=== PATIENT | male | born 1970 | race Caucasian/White ===

== ENCOUNTER 2018-12-28 13:45 | Emergency (ER) | payer OTHER, MEDICAID, SELFPAY ==
[2018-12-28 13:57] VITALS: BP 154/104; PULSE 109; RESP 16; TEMP 37; O2SAT 98; BMI 32.5
[2018-12-28] MEDS: PROPARACAINE 0.5% OPHTH SOL 1 DROPS EYE-BOTH (15:28)
--- NOTE | 2018-12-28 15:29 | PC.NURSE ---
eye drops administered by dr choi
--- NOTE | 2018-12-28 15:35 | ED.EYEPROB ---
HPI - Eye Problem <SHERLYN Patrick - Last Filed: 12/28/18 22:02> General Chief complaint: Eye Problems Stated complaint: left eye irritation antibiotic drops x3 days Time Seen by Provider: 12/28/18 15:06 Source: patient Mode of arrival: ambulatory Limitations: no limitations History of Present Illness HPI Narrative: 48-year-old male with history of asthma and hypertension, presents emergency department today complaining of bilateral eye itching and irritation for the past 3 days with mucoid discharge. He states he was in the walk-in clinic and was given eye drops and his symptoms were slightly relieved but still remain. States he has been rubbing his eyes constantly. Two days ago he also developed sneezing, rhinorrhea, and cough. He states that he felt like the itching irritation was better for a day and then it is urged increased. Patient denies any allergies to antibiotics. Patient denies fevers, sore throat, double vision, vision loss, chest pain, shortness of breath, severe headaches, dizziness, or any feelings of pressure. Related Data Previous Rx's Medication Instructions Recorded epinephrine 0.3 mg/0.3 mL 0.3 mg IM SEE INSTRUCTIONS #1 kit 12/25/18 injection, auto-injector polymyxin B sulfate 10,000 2 drp EYE-BOTH QID 7 Days #10 ml 12/25/18 unit-trimethoprim 1 mg/mL eye drops erythromycin 0.5 inch EYE-BOTH Q4H 7 Days #50 12/28/18 gram Allergies Allergy/AdvReac Type Severity Reaction Status Date / Time venom-honey bee Allergy Unknown Unverified 12/25/18 19:37 [BEE VENOM (HONEY BEE)] morphine [MORPHINE] AdvReac Unknown NAUSEA Unverified 12/25/18 19:37 Review of Systems <SHERLYN Patrick - Last Filed: 12/28/18 22:02> Review of Systems Narrative: REVIEW OF SYSTEMS: GENERAL: Denies fever or chills. HENT: No head trauma, hearing loss, or sore throat. EYES: Complains of bilateral eye irritation and eye discharge, see HPI. NECK/LYMPHATIC: No lymphadenopathy. CARDIOVASCULAR: No chest pain. RESPIRATORY: No cough or shortness of breath. INTEGUMENTARY: No rash, lesions, or pruritus. NEURO: No headaches or confusion. PFSH <SHERLYN Patrick - Last Filed: 12/28/18 22:02> Medical History Current smoker (04/26/17) Elevated blood pressure (05/02/15) Social History Smoking Status: Current some day smoker Social History Smoking Status: Current some day smoker Exam <SHERLYN Patrick - Last Filed: 12/28/18 22:02> Initial Vital Signs Initial Vital Signs: Vital Signs Temperature 98.6 F 12/28/18 13:57 Pulse Rate 109 H 12/28/18 13:57 Respiratory Rate 16 12/28/18 13:57 Blood Pressure 154/104 H 12/28/18 13:57 Pulse Oximetry 98 12/28/18 13:57 PHYSICAL EXAMINATION: GENERAL: Well groomed, alert, and cooperative. Answers questions promptly and appropriately. Vital signs noted. HENT: Normocephalic, atraumatic. Hearing intact. Oral mucosa is pink and moist. Face features symmetrical. EYES: PERRLA, EOMIs with out pain, conjunctiva erythematous, multiple small subconjunctival hemorrhages noted to medial cornea is of red eye and lateral corners of left eye. Sclera with mild injection. Profuse amount of Clear to yellow discharge noted around eyes bilaterally, eyelashes are matted. Fluorescein examination did not reveal any dense areas, abrasions, or foreign objects. No periorbital swelling. Patient tolerated the examination well. RESPIRATORY: Normal respiratory rate, trachea midline, airway patent. No stridor, nasal flaring or accessory muscle use. MUSCULOSKELETAL: Normal gait and coordination. Equal tone and mass bilaterally. SKIN: Warm, dry, soft, appropriate color for ethnicity. NEURO: Alert and Oriented X 3. Good coordination. PSYCH: Appropriate affect and mood. <Lisa Machuca DO - Last Filed: 12/29/18 07:39> Initial Vital Signs Initial Vital Signs: Vital Signs Temperature 98.6 F 12/28/18 13:57 Pulse Rate 109 H 12/28/18 13:57 Respiratory Rate 16 12/28/18 13:57 Blood Pressure 154/104 H 12/28/18 13:57 Pulse Oximetry 98 12/28/18 13:57 Course <Yoli Nguyen [employer] - Last Filed: 12/28/18 22:02> Course Course Narrative: A fluorescein exam was performed to both eyes, no corneal abrasions or foreign objects were identified. Patient tolerated exam well. Orders Ordered: Discontinued Medications Erythromycin (Erythromycin Ophth Oint) 1 applic EYE-BOTH NOW ONE Stop: 12/28/18 15:36 Last Admin: 12/28/18 15:42 Dose: 1 applic Documented by: [facility] Proparacaine HCl (Parcaine 0.5% Ophth Miranda) 1 drops EYE-BOTH NOW ONE Stop: 12/28/18 15:26 Last Admin: 12/28/18 15:28 Dose: 2 drop [facility] Consultation #1: Patient staffed with Dr. Machuca. Vital Signs Vital signs: Vital Signs - 8 hr 12/28/18 13:57 Temperature 98.6 F Pulse Rate 109 H Respiratory Rate 16 Blood Pressure 154/104 H Pulse Oximetry 98 <Lisa Machuca DO - Last Filed: 12/29/18 07:39> Orders Ordered: Discontinued Medications Erythromycin (Erythromycin Ophth Oint) 1 applic EYE-BOTH NOW ONE Stop: 12/28/18 15:36 Last Admin: 12/28/18 15:42 Dose: 1 applic Documented by: [facility] Proparacaine HCl (Parcaine 0.5% Ophth Miranda) 1 drops EYE-BOTH NOW ONE Stop: 12/28/18 15:26 Last Admin: 12/28/18 15:28 Dose: 2 drop Documented by: [facility] Vital Signs Vital signs: Vital Signs - 8 hr 12/28/18 13:57 Temperature 98.6 F Pulse Rate 109 H Respiratory Rate 16 Blood Pressure 154/104 H Pulse Oximetry 98 MDM - Eye Problem <Yoli NguyenSHERLYN - Last Filed: 12/28/18 22:02> Medical Records Attestation: I reviewed the patient's medical records. Lab Data Attestation: I reviewed the patient's lab results. MDM Narrative Medical decision making narrative: I suspect patient's symptoms are most likely caused by bacterial versus viral conjunctivitis. However, the increasing pruritus and irritation since using the eye drops may have been due to an allergy to the polymycin B drops. Additionally, I suspect subconjunctival hemorrhage due to profuse rubbing of his eyes. Very little concern for acute glaucoma as he retains his vision, EOMI without pain, and PERRLA. No concern for abrasion or foreign body as patient's story does not yield any concern for this and the exam supports this history. Strict return precautions were given and follow-up instructions discussed. Discharge Plan Departure Patient Disposition: Home Clinical Impression: Conjunctivitis Qualifiers: Conjunctivitis type: acute Acute conjunctivitis type: bacterial Laterality: bilateral Qualified Code(s): H10.33 - Unspecified acute conjunctivitis, bilateral Non-traumatic subconjunctival hemorrhage Qualifiers: Laterality: bilateral Qualified Code(s): H11.33 - Conjunctival hemorrhage, bilateral Discharge Date/Time: 12/28/18 15:55 Instructions: DI for Conjunctivitis, DI for Subconjunctival Hemorrhage Activity Restrictions/Additional Instructions: Thank you for entrusting me with your care today. As discussed, you have an infection both eyes. I have changed your antibiotics. Please take Benadryl for itching if needed, this can make you drowsy. You also have bleeding around your eyes from small blood vessels, this can be from aggressive rubbing of your eye or sneezing. Please try to avoid rubbing your eyes. Follow up with your primary care provider in the next week for re-evaluation. Return to the emergency department for vision loss, severe headaches, chest pain, shortness of breath, confusion, or other concerning symptoms. Prescriptions: New erythromycin 5 mg/gram (0.5 %) ointment 0.5 inch EYE-BOTH Q4H 7 Days Qty: 50 RF: 0 No Action polymyxin B sulf-trimethoprim 10,000 unit- 1 mg/mL drops 2 drp EYE-BOTH QID 7 Days Qty: 10 RF: 0 epinephrine [EpiPen 2-Alex] 0.3 mg/0.3 mL auto-injector 0.3 mg IM SEE INSTRUCTIONS Qty: 1 RF: 1 Referrals: Leandro Eagle MD [Primary Care Provider] -
[2018-12-28] MEDS: ERYTHROMYCIN OPHTH 1 GM OINT 1 APPLIC EYE-BOTH (15:42)
== END 2018-12-28 15:55 | disposition home or self-care (01) ==
PROVIDERS: Emergency Provider Nurse Practitioner; Family Provider Family Medicine; PCP Family Medicine
DX: H10.33 Unspecified acute conjunctivitis, bilateral (principal); H11.33 Conjunctival hemorrhage, bilateral
CPT/HCPCS: 99283

== ENCOUNTER → 2024-01-24 08:08 | Outpatient (CLI) | payer OTHER, MEDICAID, SELFPAY ==
[2024-01-24 10:08] LABS: Influenza A - CEPHEID Flu A NEGATIVE (NEGATIVE); Influenza B - CEPHEID Flu B NEGATIVE (NEGATIVE); Respiratory Syncytial Virus Negative (Negative)
[2024-01-24 10:09] LABS: COVID-19 CEPHEID 4-PLEX PCR Negative (Negative)
== END ==
PROVIDERS: Family Provider Family Medicine; PCP Family Medicine; Visit Provider Nurse Practitioner Family
DX: R19.7 Diarrhea, unspecified (principal)
CPT/HCPCS: 87635; 87400 ×2; 87420; 0241U

== ENCOUNTER 2024-01-29 05:34 | Emergency (ER) | payer OTHER, MEDICAID, SELFPAY ==
--- NOTE | 2024-01-29 05:40 | ED.GENADULT ---
HPI - General Adult General Chief complaint: Skin/Abscess/Foreign Body Stated complaint: face is swelling left side Time Seen by Provider: 01/29/24 05:40 Source: patient, RN notes reviewed and old records reviewed Mode of arrival: Ambulatory Limitations: no limitations History of Present Illness HPI narrative: 53-year-old male history of tobacco use who presents with complaint of swelling of the left face and some discomfort over the left maxillary sinus. Patient states no fevers. States last night was fine did not appreciate any swelling pain or issues woke up morning with pain swelling of the cheek and over the sinus. Patient states no fevers, no swelling of the in her airway no swelling of the tongue. States because of the outer swelling difficult to place his dentures. States he has not aware of any dental pain but states he also does not have his teeth. No nausea or vomiting. Denies symptoms similar in the past. No recent cuts, scrapes or abrasions. Patient states allergic to morphine. Does use tobacco daily, denies substance abuse or IV drug use. Related Data Previous Rx's Medication Instructions Recorded epinephrine 0.3 mg/0.3 mL 0.3 mg (0.3 mL) IM SEE 12/25/18 injection, auto-injector (EpiPen INSTRUCTIONS #1 kit 2-Alex) amoxicillin 875 mg-potassium 1 tab PO BID #20 tabs 01/29/24 clavulanate 125 mg tablet Allergies Allergy/AdvReac Type Severity Reaction Status Date / Time venom-honey bee Allergy Unknown Unverified 01/24/24 08:06 [BEE VENOM (HONEY BEE)] morphine [MORPHINE] AdvReac Unknown NAUSEA Unverified 01/24/24 08:06 Review of Systems Review of Systems ROS Unobtainable: All systems reviewed & are unremarkable except as noted in HPI and below Patient History Medical History (Updated 01/29/24 @ 05:51 by Jenelle Faulkner DO) Current smoker (04/26/17) Elevated blood pressure (05/02/15) Social History Smoking Status: Current some day smoker Smoking Status: Current some day smoker Substance Use Type: does not use Exam Narrative Exam Narrative: GEN: well nourished, well appearing [default value], alert and oriented x [default value], patient appears to be in mild distress. HEENT: Atraumatic, pupils are equal round reactive to light, extraocular movements are intact, nares are clear, TMs are clear with no fluid, there is no conjunctival pallor. Throat is clear without any exudates, erythema, tonsillar enlargement or uvular deviation, patient has swelling of the left maxillary and cheek. There is some fullness and induration of the left maxillary region but no fluctuance, no warmth, there is no erythema. Patient does not have his dentures in place no swelling of the oropharynx, no swelling of the tongue. Normal speech. No difficulty with swallowing secretions. HEART: Regular rate and rhythm without murmur, clicks, rubs. LUNGS:Lungs clear to auscultation, no wheezes, rales, crackles, chest moves symmetrically ABD:bowel sounds normal, soft, non-tender, no guarding, rebound, rigidity, no masses noted, no hepatosplenomegaly MSCL: Full range of motion, normal gait NEURO:CN 2-12 intact, sensation normal. Initial Vital Signs Initial Vital Signs: Vital Signs Temperature 97.8 F 01/29/24 05:44 Pulse Rate 106 H 01/29/24 05:44 Respiratory Rate 20 01/29/24 05:44 Blood Pressure 168/79 H 01/29/24 05:44 Pulse Oximetry 95 01/29/24 05:44 Oxygen Delivery Method Room Air 01/29/24 05:44 Course Orders Ordered: Discontinued Medications Amoxicillin/Clavulanate Potassium (Amoxicillin/Clav 875/125 Mg) 1 tab PO NOW ONE Stop: 01/29/24 05:48 Last Admin: 01/29/24 05:52 Dose: 1 tab Vital Signs Vital signs: Vital Signs - 8 hr 01/29/24 05:44 Temperature 97.8 F Pulse Rate 106 H Respiratory Rate 20 Blood Pressure 168/79 H Pulse Oximetry 95 Oxygen Delivery Method Room Air Medical Decision Making [facility] Narrative Medical decision making narrative: 53-year-old male appears to have cellulitis of the left face there is some induration but no clear fluctuance or area that could be drained. Started patient on oral antibiotic with strict return precautions. Discharge Plan Departure Patient Disposition: Home Clinical Impression: Cellulitis of face Instructions: DI for Cellulitis -- Adult Activity Restrictions/Additional Instructions: Take oral antibiotics until completed. Prescription was sent to [facility]. You can use warm compresses to the affected area for 10 minutes every 3 or 4 hours. You can also take acetaminophen or ibuprofen as needed for pain. Please return if you are having rapidly worsening swelling, fevers, swelling of the tongue, airway, difficulty with speech or breathing, any hoarseness, vomiting, lightheadedness or passing out or other new or concerning changes. Prescriptions: New amoxicillin-pot clavulanate 875-125 mg tablet 1 tab PO BID Qty: 20 0RF No Action epinephrine [EpiPen 2-Alex] 0.3 mg/0.3 mL auto-injector 0.3 mg IM SEE INSTRUCTIONS Qty: 1 1RF Referrals: Leandro Eagle MD [Primary Care Provider] - Stand Alone Forms: Patient Portal/API
[2024-01-29 05:44] VITALS: BP 168/79; PULSE 106; RESP 20; TEMP 36.6; O2SAT 95; BMI 29.8
[2024-01-29] MEDS: AMOXICILLIN/CLAV 875/125 MG 1 TAB PO (05:52)
== END 2024-01-29 05:55 | disposition home or self-care (01) ==
PROVIDERS: Emergency Provider Emergency Medicine; Family Provider Family Medicine; PCP Family Medicine
DX: L03.211 Cellulitis of face (principal)
CPT/HCPCS: 99283